=== PATIENT | male | born 1960 | race Two or more races ===

== ENCOUNTER 2024-07-10 08:21 | Outpatient (OUT) | payer OTHER, SELFPAY ==
[2024-07-10 08:48] LABS: Hemoglobin 15.9 g/dL (14.0-18.0)
--- NOTE | 2024-07-10 09:00 | RT_ITS ---
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 Findings were considered accurate and reproducible. Both pre- and post-bronchodilator values utilized for spirometry. Spirometry (based on pre-bronchodilator values): -FEV1/FVC: Normal @ 75% -FEV1: Mildly reduced @ 79% -FVC: Mildly reduced @ 79% -There is a partial bronchodilator response in FVC which meets >200mL increase but <12% change. Lung volumes by plethysmography (based on pre-bronchodilator values): -RV: Increased @ 171% -TLC: Normal @ 109% Diffusion capacity: -DLCO: Moderate reduction @ 68% when corrected for Hb 15.9g/dL Flow-volume loop: -'Scooping/coving' of the expiratory limb Impressions: -Non-diagnostic spirometry. Increased RV may suggest air trapping. Moderate diffusion impairment. With mild scooping of expiratory flow-volume limb, there may be underlying COPD/emphysema. Clinical correlation required. Electronically Signed On 07-10-2024 17:01:34 EDT by Trevor Hamm
--- NOTE | 2024-07-10 09:22 | XR_ITS ---
[address] [address] Patient Name: OLGA LIDIA ELIZALDE MRN: [id number] date: 1960 Sex: M Assigned Patient Location: CARD Current Patient Location: CARD Accession/Order Number: [id number] Exam Date: 07/10/2024 11:58 Report Date: 07/10/2024 11:58 At the request of: FAUSTINO ROWLEY DO Procedure: XR chest 2V Chest 2 views CLINICAL HISTORY: Chronic Obstructive Pulmonary Disease COMPARISON: None FINDINGS: Loop recorder is noted. Heart is normal in size. Lungs are clear. No free air. XR/XR chest 2V IMPRESSION: NO ACUTE CARDIOPULMONARY ABNORMALITY. Impression dictated by: Jose Whiteside Jr., D.OShoaib 07/10/2024 11:58 AM Dictation Location: [place] [address] Electronically authenticated by: [id number] Y Date: 07/10/2024 11:58
[2024-07-10] MEDS: ALBUTEROL SULFATE 2.5 MG/3 ML VIAL NEB IH (10:07)
[2024-07-10 10:08] LABS: Bilirubin Urine NEGATIVE (NEGATIVE); Blood Urine TRACE-I (NEGATIVE); Clarity Urine CLEAR (CLEAR); Color Urine YELLOW (YELLOW); Glucose Urine UA >=1000 mg/dL (NEGATIVE); Ketones Urine NEGATIVE (NEGATIVE); Leukocyte Esterase Urine NEGATIVE (NEGATIVE); Nitrite Urine NEGATIVE (NEGATIVE); Protein Urine 100 mg/dL (NEG/TRACE); Specific Gravity Urine 1.025 (1.005-1.025); Urobilinogen Urine 0.2 EU/dL (0.2-1.0)
[2024-07-10 10:26] LABS: Alanine Aminotransferase 33 U/L (16-63); Albumin Globulin Ratio 0.9; Albumin Level 3.4 g/dL (3.4-5.0); Alkaline Phosphatase 101 U/L (46-116); Anion Gap 11.1; Aspartate Amino Transferase 21 U/L (15-37); BUN Creatinine Ratio 14.7; Bilirubin Total 0.9 mg/dL (0.2-1.0); Calcium 9.3 mg/dL (8.5-10.1); Carbon Dioxide 31.3 mmol/L (21.0-32.0); Chloride 102 mmol/L (98-107); Estimated GFR (African America 44 (>=60 mL/min/1.73m^2); Estimated GFR (Non-African Ame 36 (>=60 mL/min/1.73m^2); Glucose 192 mg/dL (74-106); Potassium 4.4 mmol/L (3.5-5.1); Sodium 140 mmol/L (136-145); Total Protein 7.4 g/dL (6.4-8.2)
== END 2024-07-10 08:22 | disposition home or self-care (01) ==
LOC: CARD 08:25
PROVIDERS: PCP Chiropractor; Visit Provider Chiropractor
DX: J44.9 Chronic obstructive pulmonary disease, unspecified (principal); N18.9 Chronic kidney disease, unspecified
CPT/HCPCS: 36415; 71046; 80053; 81003; 85018; 94060; 94726; 94729